=== PATIENT | female | born 1960 | race Caucasian/White ===

== ENCOUNTER 2021-01-15 00:41 | Emergency (ER) | payer BC ==
[2021-01-15] MEDS: Albuterol/Ipratropium 3.0-0.5 MG/3 ML Neb Soln NEB ONE (01:23)
[2021-01-15] MEDS: methylPREDNISolone Sodium Succinate 125 MG/2 ML SDV IM ONE (01:23)
--- NOTE | 2021-01-15 02:27 | EDM.PDOC ---
ED HPI GENERAL MEDICAL PROBLEM - General Chief Complaint: Respiratory Problem Stated Complaint: sob Time Seen by Provider: 01/15/21 00:43 Source of Information: Reports: Patient History Limitations: Reports: No Limitations - History of Present Illness INITIAL COMMENTS - FREE TEXT/NARRATIVE: Pt. presents to ER with complaints of cough, chest congestion, and increased shortness of breath for the past week. She was seen in clinic this week and started on a zpack and medrol dose pack. She has 2 days left of her dose pack. Pt. states that tonight she was outside at a fire and thinks this may have worsened her symptoms. She states that she took a neb treatment several hours ago and states that they are helping. She decided to come in because she is not yet feeling better. Pt. denies any fever or chills. No nausea, vomiting, or diarrhea. No substernal chest, jaw, arm, neck or back pain. No diaphoresis. Denies any headache. Denies any ill contacts. No loss of taste or symptoms of covid. She states that she has had both coronavirus immunizations. 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 Treatments - Related Data Allergies Allergy/AdvReac Type Severity Reaction Status Date / Time lisinopril Allergy Cough Verified 06/10/18 07:24 Home Meds: Home Meds Furosemide 40 mg PO DAILY 03/16/18 [History] Losartan [Cozaar] 100 mg PO DAILY 03/16/18 [History] Sertraline HCl 100 mg PO DAILY 03/16/18 [History] amLODIPine Besylate [Amlodipine Besylate] 10 mg PO DAILY 03/16/18 [History] traZODone HCl [Trazodone HCl] 50 mg PO BEDTIME 03/16/18 [History] Omeprazole 1 cap PO DAILY 06/09/18 [History] Umeclidinium Brm/Vilanterol Tr [Anoro Ellipta 62.5-25 MCG] 1 puff IH DAILY 06/09/18 [History] Aspirin [Halfprin] 81 mg PO DAILY 06/10/18 [History] Multivitamin [Multi-Day Vitamins] 1 each PO DAILY 06/10/18 [History] atorvaSTATin [Lipitor] 20 mg PO BEDTIME 06/10/18 [History] traMADol [Ultram] 50 mg PO BID PRN 06/10/18 [History] Albuterol/Ipratropium [DuoNeb 3.0-0.5 MG/3 ML] 3 ml NEB Q6HRRT #60 neb 06/12/18 [Rx] Furosemide [Lasix] 20 mg PO DAILY #14 tab 06/12/18 [Rx] Potassium Chloride 20 meq PO DAILY #14 tablet.er 06/12/18 [Rx] Albuterol Sulfate [Albuterol Sulfate Hfa] 01/15/21 [History] Cyclobenzaprine [Flexeril] 5 mg PO ASDIRECTED 01/15/21 [History] Gabapentin [Neurontin] 300 mg PO BEDTIME 01/15/21 [History] Metoprolol Succinate [Kapsp[place] Sprinkle] 25 mg PO DAILY 01/15/21 [History] Ubidecarenone [Coenzyme Q10] 60 mg PO DAILY 01/15/21 [History] hydroCHLOROthiazide [Hydrochlorothiazide] 25 mg PO DAILY 01/15/21 [History] methylPREDNISolone [Medrol Dose Pack] 4 mg PO ASDIRECTED 01/15/21 [History] Past Medical History HEENT History: Reports: Impaired Vision, Other (See Below) Other HEENT History: She wears glasses. Cardiovascular History: Reports: High Cholesterol, Hypertension, Other (See Below) Other Cardiovascular History: Varicose veins Respiratory History: Reports: Bronchitis, Recurrent, COPD, Intubation, Previous, Pneumonia, Recurrent, Sleep Apnea, Other (See Below) Other Respiratory History: Severe obstructive sleep apnea with patient compliant with her CPAP. Gastrointestinal History: Reports: Colon Polyp, GERD, Helicobacter Pylori, Hiatal Hernia, Other (See Below) Other Gastrointestinal History: Adenomatous polyp of the descending colon excised in 2017 as below. Previously treated H. pylori infection in the . Genitourinary History: Reports: Urinary Incontinence, Other (See Below) Other Genitourinary History: Mild urinary stress incontinence with coughing. 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 Otherwise, Full term without complications during pregnancies or deliveries. Menopause at age 54. Musculoskeletal History: Reports: Arthritis, Back Pain, Chronic, Neck Pain, Chronic, Osteoarthritis, Other (See Below) Other Musculoskeletal History: Spinal stenosis requiring surgery as below. Neurological History: Reports: None Psychiatric History: Reports: Anxiety, Depression Endocrine/Metabolic History: Reports: Obesity/BMI 30+, Other (See Below) Other Endocrine/Metabolic History: Hyperglycemia Hematologic History: Reports: None Immunologic History: Reports: None Oncologic (Cancer) History: Reports: None Dermatologic History: Reports: Eczema - Infectious Disease History Infectious Disease History: Reports: Chicken Pox, Helicobacter Pylori, RSV - Past Surgical History Head Surgeries/Procedures: Reports: None HEENT Surgical History: Reports: None, Oral Surgery, Other (See Below) Other HEENT Surgeries/Procedures: [place] teeth extraction 3 at age 37 with additional teeth extractions. Cardiovascular Surgical History: Reports: Varicose, Other (See Below) Other Cardiovascular Surgeries/Procedures: Endovenous ablation of the varicose veins in the left leg on 05/19/14 and 02/09/15. Respiratory Surgical History: Reports: None GI Surgical History: Reports: Colonoscopy, Polypectomy, Other (See Below) Other GI Surgeries/Procedures: Last Colonoscopy on 09/14/16 with polypectomy as above. Female Surgical History: Reports: D&C, Other (See Below) Other Female Surgeries/Procedures: D&C secondary to first trimester SAB in 1987. Endocrine Surgical History: Reports: None Neurological Surgical History: Reports: Discectomy, Laminectomy, Lumbar Spine, Other (See Below) Other Neurological Surgeries/Procedures: Discectomy and laminectomy with nerve decompression of L4-L5 on 07/27/14 Musculoskeletal Surgical History: Reports: None Oncologic Surgical History: Reports: None Dermatological Surgical History: Reports: None - Past Imaging History Past Imaging History: Reports: Mammogram (Last mammogram on 10/29/17), MRI (MRI of the lumbar spine on 11/19/13.), Sleep Study (Last sleep study on 10/18/17 with previous evaluations on 06/13/17 and 2011.), Ultrasound (Breast Ultrasound on 03/07/14.), Venous Doppler (Venous Doppler studies of the left leg on 01/29/17, 02/12/15, 04/09/14, and 04/09/13.) Social & Family History - Family History HEENT: Reports: Macular Degeneration, Other (See Below) Other HEENT Family History: Father with macular degeneration. Cardiac: Reports: Afib, Arrhythmia, CAD, MT, Stent, Other (See Below) Other Cardiac Family History: Father with atrial fibrillation and MT including stent placement in his 60s. Brother with atrial fibrillation and MT and stent placement at age 59. Respiratory: Reports: Sleep Apnea, Other (See Below) Other Respiratory Family Hisory: Brother with sleep apnea. GI: Reports: Colon Polyps, PUD, Other (See Below) Other GI Family History: Brother with peptic ulcer disease. Mother and maternal aunt with fatal colon cancer as below. Brother with history of bowel obstruction. Brothers 3 with unknown type of colonic polyps. : Reports: Renal Calculus, Other (See Below) Other Family History: Brother with urolithiasis. OBGYN: Reports: None Musculoskeletal: Reports: None Neurological: Reports: CVA, Other (See Below) Other Neurological Family History: Father with history of recurrent CVAs likely secondary to his atrial fibrillation initially in his early 60s. Psychiatric: Reports: None Endocrine/Metabolic: Reports: None Hematologic: Reports: None Immunologic: Reports: None Dermatologic: Reports: None Oncologic: Reports: Colon, Other (See Below) Other Oncologic Family History: Mother with fatal colon cancer at age 74. Maternal uncle with brain cancer fatal in his 40s. Maternal aunts 3 with colon cancer in their 60s with one maternal aunt dying from her colon cancer in her 60s. 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 Denies: Fever, Chills, Malaise, Weakness, Fatigue HEENT: Reports: No Symptoms Respiratory: Reports: Shortness of Breath, Wheezing Cardiovascular: Reports: No Symptoms Endocrine: Reports: No Symptoms GI/Abdominal: Reports: No Symptoms : Reports: No Symptoms Musculoskeletal: Reports: No Symptoms Skin: Reports: No Symptoms Neurological: Reports: No Symptoms Psychiatric: Reports: No Symptoms Hematologic/Lymphatic: Reports: No Symptoms Immunologic: Reports: No Symptoms ED EXAM, GENERAL - Physical Exam Exam: See Below Exam Limited By: No Limitations General Appearance: Alert, WD/WN, No Apparent Distress Head: Atraumatic, Normocephalic Neck: Normal Inspection, Supple, Non-Tender, Full Range of Motion Respiratory/Chest: No Respiratory Distress, Decreased Breath Sounds, Wheezing Cardiovascular: Normal Peripheral Pulses, Regular Rate, Rhythm, No Edema, No JVD, No Murmur Peripheral Pulses: 4+: Radial (R) GI/Abdominal: Soft, Non-Tender, No Distention, No Mass (Female) Exam: Deferred Rectal (Female) Exam: Deferred Extremities: Normal Inspection, Normal Range of Motion, No Pedal Edema, Normal Capillary Refill Neurological: Alert, Oriented, CN II-XII Intact, Normal Cognition Psychiatric: Normal Affect, Normal Mood Skin Exam: Warm, Dry, Intact, Normal Color, No Rash Course - Vital Signs Last Recorded V/S: Last Vital Signs Temp 36.7 C 01/15/21 00:43 Pulse 75 01/15/21 01:02 Resp 22 H 01/15/21 01:02 BP 138/69 01/15/21 01:02 Pulse Ox 94 L 01/15/21 01:02 - Orders/Labs/Meds Orders: Active Orders 24 hr Category Date Time Status RT Aerosol Therapy [RC] ASDIRECTED Care 01/15/21 01:00 Active Chest 2V [CR] Stat Exams 01/15/21 00:59 Taken Meds: Medications Discontinued Medications Generic Name Dose Route Start Last Admin Trade Name Huangq PRN Reason Stop Dose Admin Albuterol/Ipratropium 3 ml 01/15/21 00:59 01/15/21 01:23 Albuterol/Ipratropium 3.0-0.5 Mg/3 Ml Neb Soln NEB 01/15/21 01:00 3 ml ONETIME ONE Administration Methylprednisolone Sodium Succinate 125 mg 01/15/21 00:59 01/15/21 01:23 Methylprednisolone Sodium Succinate 125 Mg/2 Ml Sdv IM 01/15/21 01:00 125 mg ONETIME ONE Administration - Radiology Interpretation Free Text/Narrative:: chest x-ray shows increased consolidation R middle/lower lobe. - Re-Assessments/Exams Free Text/Narrative Re-Assessment/Exam: 01/15/21 02:32 Pt. was given a duoneb breathing treatment with much improvement. Pt. was also given solu medrol 125mg IM. Departure - Departure Time of Disposition: : Disposition: Home, Self-Care 01 Clinical Impression: Community acquired pneumonia, COPD exacerbation - Discharge Information Instructions: Chronic Obstructive Pulmonary Disease Exacerbation, [id number], Amoxicillin; Clavulanic Acid Tablets, Prednisone tablets, Codeine; Promethazine oral solution, Community-Acquired Pneumonia, Adult, [id number] Referrals: Ekaterina Soto PA-C [Primary Care Provider] - Forms: ED Department Discharge Additional Instructions: Prednisone 50mg daily (use take home pack) then 40mg daily to finish the course. You can finish your medrol dose pack as directed as well. Augmentin 875mg 1 tab twice daily for 10 days total Phenergan with codeine 5 ml every 4-6 hours as needed for cough, especially before bed. If this isn't helping, you can take 7.5-10ml every 4-6 hours. Stay out of smoke for the next 10 days or so. I would stay inside and air- conditioned house until the inflammation has improved in your lungs. Recheck in clinic with Ekaterina in 14 days. Return to ER if you have increased trouble breathing. Take your nebulizer at least every 6 hours, but you can take it every 4 if needed. Sepsis Event Note (ED) - Evaluation Sepsis Screening Result: No Definite Risk - Focused Exam Vital Signs: Vital Signs Temp Pulse Resp BP Pulse Ox 01/15/21 01:02 75 22 H 138/69 94 L 01/15/21 00:43 36.7 C 76 22 H 166/85 H 96 - Problem List Review Problem List Initiated/Reviewed/Updated: Yes - My Orders Last 24 Hours: My Active Orders 01/15/21 00:59 Chest 2V [CR] Stat 01/15/21 01:00 RT Aerosol Therapy [RC] ASDIRECTED - Assessment/Plan Last 24 Hours: My Active Orders 01/15/21 00:59 Chest 2V [CR] Stat 01/15/21 01:00 RT Aerosol Therapy [RC] ASDIRECTED Plan: Prednisone 50mg daily (use take home pack) then 40mg daily to finish the course. You can finish your medrol dose pack as directed as well. Augmentin 875mg 1 tab twice daily for 10 days total Phenergan with codeine 5 ml every 4-6 hours as needed for cough, especially before bed. If this isn't helping, you can take 7.5-10ml every 4-6 hours. Stay out of smoke for the next 10 days or so. I would stay inside and air- conditioned house until the inflammation has improved in your lungs. Recheck in clinic with Ekaterina in 14 days. Return to ER if you have increased trouble breathing. Take your nebulizer at least every 6 hours, but you can take it every 4 if needed.
== END 2021-01-15 02:30 | disposition home or self-care (01) ==
LOC: LL.ED 00:41
DX: J44.0 Chronic obstructive pulmonary disease with (acute) lower respiratory infection (principal); J18.9 Pneumonia, unspecified organism; J44.1 Chronic obstructive pulmonary disease with (acute) exacerbation; E78.00 Pure hypercholesterolemia, unspecified; I10 Essential (primary) hypertension; J44.9 Chronic obstructive pulmonary disease, unspecified; K21.9 Gastro-esophageal reflux disease without esophagitis; M19.90 Unspecified osteoarthritis, unspecified site; E66.9 Obesity, unspecified; Z72.0 Tobacco use; Z68.42 Body mass index [BMI] 45.0-49.9, adult; Z88.8 Allergy status to other drugs, medicaments and biological substances; Z79.82 Long term (current) use of aspirin; Z79.899 Other long term (current) drug therapy
CPT/HCPCS: 71046; 94640; 96372; 99285; J2930; 99284; J7620-GY